=== PATIENT | female | born 1945 | race Caucasian/White ===

== ENCOUNTER → 2018-05-09 | Outpatient (CLI) | payer MEDICARE, BC, OTHER ==
--- NOTE | 2018-05-09 18:09 | CONS ---
Date/Time of Note Date/Time of Note DATE: 05/09/18 TIME: 17:59 Assessment/Plan Assessment/Plan Hospital Course This is a 72-year-old female with a nondisplaced left patella fracture. She has not been properly immobilized over the last week as the knee sleeve given her in the emergency department was not truly knee immobilizer. However the fracture remains nondisplaced and the patient is feeling better. Therefore this is lik blaze a stable fracture. Given this will likely be able to accelerate my standard patella fracture protocol. Plan: Patient was ordered a hinged knee brace. The brace should be locked in extension at all times. She can weight-bear as tolerated with her knee locked in extension. Given the stable fracture can likely start limited range of motion in another 2 weeks. Ice the knee Follow-up 2 weeks with AP and lateral knee x-rays. Consultation Date/Type/Reason Admit Date/Time Date of Consultation: May 09, 2018 Reason for Consultation Left patella fracture Hx of Present Illness This is a 72-year-old female who is otherwise very healthy presents to clinic with a left patella fracture. She fell directly on her knee after missing a step last Sunday on April 25, 2018. She was seen in the emergency department. She was diagnosed with patella fracture. She was placed in a a stiff knee sleeve. She has been keeping her knee straight. And has been weightbearing as tolerated with her knee in extension with a cane. She states her pain is significantly better than it was even a few days ago. Pain today is 2/10. She denies any injury elsewhere at this time. She has been using ice. Patient denies fever, chills, shortness of breath, chest pain, nausea/vomiting, constipation, diarrhea, numbness, and tingling. Past Medical History Vitiligo Osteopenia Past Surgical History Past Surgical Hx: noncontributory Family History Significant Family History: no pertinent family hx Social History Alcohol Use: heavy (1 drink a day) Smoking Status: Former smoker Drug Use: none Exam/Review of Systems Vital Signs Vitals Weight: 105 pounds Height: 5 feet 4 inches Temperature: 98 point Heart Rate: 280 Blood Pressure: 141/62 Respiratory Rate: 14 Exam General: Awake, alert, in no acute distress, pleasant and cooperative Heart: regular rhythm Lungs: breathing comfortably, no tachypnea or dyspnea Musculoskeletal: Left lower extremity: There is a superficial healing abrasion over the anterior knee. There is significant swelling over the knee in the prepatellar bursa as well as intra- articular effusion. There is tenderness palpation over the proximal pole of the patella. Sensation intact light touch along sural, saphenous, deep peroneal, superficial peroneal, plantar nerves. Motor is intact to tibialis Anterior, gastrocnemius, EHL, FHL. Brisk cap refill on toes Imaging Imaging AP and lateral of the left knee was obtained today in clinic. The imaging was personally reviewed by myself There is a nondisplaced patella fracture. There is a vertical as well as a transverse component. This could be true comminuted fracture or possibly a transverse fracture in the setting of a bipartite patella. There is minimal articular step-off. There is a joint effusion. No other fracture appreciated. PATI DUNLAP MD May 09, 2018 18:09
--- NOTE | 2018-05-10 09:57 | RADRPT ---
PROCEDURE: XR knee CLINICAL INDICATION: Left knee pain. TECHNIQUE: 2 weightbearing views of the left knee were obtained. COMPARISON: None. FINDINGS: There is a comminuted nondisplaced patellar fracture. Remaining osseous structures are intact. There are mild tricompartmental osteoarthritic changes of the knee. There is a small knee joint effusion. T here is moderate prepatellar soft tissue swelling. IMPRESSION: 1. Comminuted, nondisplaced patellar fracture. 2. Mild tricompartmental osteoarthritis. 3. Small knee joint effusion. 4. Moderate prepatellar soft tissue swelling. Results were communicated to Doyle (assistant head cashier for Dr. Chavez) by Dr. Alexis at the time of d ictation. RPTAT: DD Physician Moises Date Time Electronically viewed and signed by Physician Moises on 05/10/2018 09:56 /
== END | disposition home or self-care (01) ==
LOC: HKI 15:44
PROVIDERS: ATTEND Orthopaedic Surgery Adult Reconstructive Orthopaedic Surgery
DX: S82.002D Unspecified fracture of left patella, subsequent encounter for closed fracture with routine healing (principal); X58.XXXD Exposure to other specified factors, subsequent encounter
CPT/HCPCS: 73560; G0463

== ENCOUNTER → 2018-05-23 | Outpatient (CLI) | payer MEDICARE, BC, OTHER ==
--- NOTE | 2018-05-23 15:56 | CONS ---
Date/Time of Note Date/Time of Note DATE: 05/23/18 TIME: 15:51 Consult Date/Type/Reason Admit Date/Time Initial Consult Date Reason for Consultation Left patella fracture Subjective 72-year-old female left nondisplaced patella fracture. She is being treated nonoperatively with a hinged knee brace. Over the last 2 weeks she has been locked in full extension at all times. She has been weightbearing as tolerated with the brace locked in full extension. Patient states decrease in swelling. Decrease in pain. Denies numbness and tingling. She has had some significant difficulty with the brace secondary to her small skeletal size in relationship to the brace. She has been wearing a smaller lockable hinged knee brace at night while in bed. Objective Weight: 105 pound Height: 5 foot 4 inches Temperature: 90 point Heart Rate: 96 Blood Pressure: 156/50 Respiratory Rate: 914 Exam General: Awake, alert, in no acute distress, pleasant and cooperative Heart: regular rhythm Lungs: breathing comfortably, no tachypnea or dyspnea Musculoskeletal: Left lower extremity: Skin is intact. There is soft tissue swelling around the patella as well as a joint effusion. No ecchymosis. There is minimal tenderness to palpation along the proximal pole and insertion of the quadricep tendon. Patient is able to perform a straight leg raise. Patient is able to flex the knee to proximal 45 degrees without pain. sensation intact to light touch in a sural, saphenous, deep peroneal, superficial peroneal, medial and lateral plantar nerve distribution. Motor is intact, patient able to dorsiflex and plantarflex ankle and extend and flex great toe. Dorsalis Pedis pulse +2, Brisk capillary refill. Compartments are soft. Results/Medications Results 24 hrs AP and lateral of the left knee were obtained today in clinic. These were personally reviewed. The x-rays again demonstrate a nondisplaced proximal pole patella fracture. No healing is appreciated. There has been no interval displacement or distraction of the fracture. No other acute abnormality. Assessment/Plan Chief Complaint/Hosp Course 72-year-old female 3 weeks status post left nondisplaced patella fracture. She is being treated nonoperatively with a hinged knee brace. At this time the hinged knee brace is going to be unlocked to 30 degrees of flexion. She is allowed to do these range of motion exercises throughout the day. However when she does ambulate the brace should be locked in full extension. If everything proceeds as anticipated in 2 more weeks her brace will be unlocked to 60 degrees in the following 2 weeks would be opened up to 90 degrees. All up 2 weeks with x-rays PATI DUNLAP MD May 23, 2018 15:56
--- NOTE | 2018-05-23 16:53 | RADRPT ---
PROCEDURE: Left knee x-ray CLINICAL INDICATION: Knee pain TECHNIQUE: AP and lateral views of the left knee were obtained. COMPARISON: DR THOMAS 05/09/2018 FINDINGS: There is normal mineralization. There is a comminuted nondisplaced fracture of the patella, unchanged. There are mild degenerative changes. There is no joint effusion. There is no significant soft tissue swelling. RPTAT: AA IMPRESSION: Unchanged comminuted nondisplaced fracture of the patella. Resolved left knee joint effusion. .Valentino Rees MD, MD Date Time Electronically viewed and signed by .Valentino Rees MD, on 05/23/2018 16:53 .S/
== END | disposition home or self-care (01) ==
LOC: HKI 13:45
PROVIDERS: ATTEND Orthopaedic Surgery Adult Reconstructive Orthopaedic Surgery
DX: Z47.89 Encounter for other orthopedic aftercare (principal); S82.002D Unspecified fracture of left patella, subsequent encounter for closed fracture with routine healing; X58.XXXD Exposure to other specified factors, subsequent encounter
CPT/HCPCS: 73560; G0463

== ENCOUNTER → 2018-06-20 | Outpatient (CLI) | payer MEDICARE, BC, OTHER ==
--- NOTE | 2018-06-20 15:20 | CONS ---
Consult Date/Type/Reason Admit Date/Time Initial Consult Date Date/Time of Note DATE: 06/20/18 TIME: 15:17 Subjective 72-year-old female following up 7 weeks status post nondisplaced left patella fracture. She has been treated nonoperatively. At last visit she was allowed to perform range of motion in the brace 0-60 degrees when not bearing weight. When ambulating or bearing weight the brace was to be locked. She has been following instructions. She states the pain continues to be less and less and the swelling has decreased. Denies any other issues. She is looking forward to completing the use of the brace. Objective Vitals Weight: 105 pounds Height: 5 foot 4-1/2 inches Temperature: 98.2 Heart Rate: 75 Blood Pressure: 125/62 Respiratory Rate: 12 Exam General: Awake, alert, in no acute distress, pleasant and cooperative Heart: regular rhythm Lungs: breathing comfortably, no tachypnea or dyspnea MUSCULOSKELETAL: Left lower extremity: Skin intact. There is no swelling or effusion to the knee. There is minimal tenderness to palpation along the proximal pole of the patella. Range of motion 0-90 degrees with no pain. Sensation intact to light touch in a sural, saphenous, deep peroneal, superficial peroneal, medial and lateral plantar nerve distribution. Motor is intact, patient able to dorsiflex and plantarflex ankle and extend and flex great toe. Dorsalis Pedis pulse +2, Brisk capillary refill. Compartments are soft. Calves non-tender to palpation bilaterally. Results/Medications Imaging AP and lateral of the left knee were obtained today and images were personally reviewed. There is a nondisplaced transverse fracture involving the superior pole of the patella. There is no distraction or displacement when compared to previous views. The fracture is healing. Assessment/Plan Hospital Course (Demo Recall) 72-year-old female 7 weeks status post stable nondisplaced left patella fracture. She is doing well. At this time we will allow her to open of the brace 0-90 degrees for range of motion exercises. She is still to use the brace locked in full extension when weightbearing. I would like her to follow-up in 2 weeks and at that time we will unlock the brace completely full range of motion exercises and unlocked to 45 degrees for ambulation and start physical therapy. PATI DUNLAP MD Jun 20, 2018 15:20
--- NOTE | 2018-06-21 05:45 | RADRPT ---
PROCEDURE: Left knee series CLINICAL INDICATION: Pain TECHNIQUE: AP and cross-table lateral views of the right knee COMPARISON: 06/06/2018 left knee FINDINGS: Barely visible fracture line is evident in the healing comminuted nondisplaced patellar fracture. Scl erosis is noted adjacent to the fracture lines in the patella. Mild skin thickening is present withou t definite effusion. Mild joint space narrowing is present of the patellofemoral, medial and lateral joint compartments. IMPRESSION: 1. Healing, comminuted, closed , nondisplaced patellar fracture RPTAT: HDC .Janice Barber MD, Date Time Electronically viewed and signed by .Janice Barber MD, on 06/21/2018 05:45 .C/
== END | disposition home or self-care (01) ==
LOC: HKI 13:23
PROVIDERS: ATTEND Orthopaedic Surgery Adult Reconstructive Orthopaedic Surgery
DX: S82.002D Unspecified fracture of left patella, subsequent encounter for closed fracture with routine healing (principal); X58.XXXD Exposure to other specified factors, subsequent encounter
CPT/HCPCS: 73560; G0463

== ENCOUNTER → 2018-07-04 | Outpatient (CLI) | payer MEDICARE, BC, OTHER ==
--- NOTE | 2018-07-04 16:34 | CONS ---
Consult Date/Type/Reason Admit Date/Time Initial Consult Date Date/Time of Note DATE: 07/04/18 TIME: 16:30 Subjective 73-year-old female returns today 8 weeks status post left nondisplaced patella fracture. She has been treated nonoperatively. She states she has no pain. She is eager to increase her range of motion and wean out of the brace. Objective Exam General: Awake, alert, in no acute distress, pleasant and cooperative Heart: regular rhythm Lungs: breathing comfortably, no tachypnea or dyspnea MUSCULOSKELETAL: Left lower extremity: Skin intact. No effusion. No ecchymosis. Nontender to palpation over the patella and knee. Range of motion 0120 with no pain. Sensation intact to light touch in a sural, saphenous, deep peroneal, superfici al peroneal, medial and lateral plantar nerve distribution. Motor is intact, patient able to dorsiflex and plantarflex ankle and extend and flex great toe. Dorsalis Pedis pulse +2, Brisk capillary refill. Compartments are soft. Calves non-tender to palpation bilaterally. Results/Medications Imaging 2 views of the left knee from an outside facility were reviewed today. These were compared to prior x-rays. There is a healed transverse nondisplaced fracture of the proximal pole of the patella. Assessment/Plan Hospital Course (Demo Recall) 73-year-old female 8 weeks status post left nondisplaced patella fracture. She is doing very well. She has no pain 0-120 degrees of flexion. Clinically and radiographically the patella is healed. At this time she is allowed full range of motion without the brace when not walking. When walking I am requesting that she wears the brace 0-60 degrees to prevent buckling and falling. She will begin physical therapy for range of motion, stretching, strengthening. She is to wean out of the brace as she gains strength and quad control. Follow- up 4 weeks with AP and lateral of the knee. PATI DUNLAP MD Jul 04, 2018 16:34
== END | disposition home or self-care (01) ==
LOC: HKI 15:47
PROVIDERS: ATTEND Orthopaedic Surgery Adult Reconstructive Orthopaedic Surgery
DX: S82.002D Unspecified fracture of left patella, subsequent encounter for closed fracture with routine healing (principal); X58.XXXD Exposure to other specified factors, subsequent encounter
CPT/HCPCS: G0463

== ENCOUNTER → 2018-08-01 | Outpatient (CLI) | payer MEDICARE, BC, OTHER ==
--- NOTE | 2018-08-02 22:20 | RADRPT ---
PROCEDURE: XR Left Knee. CLINICAL INDICATION: Left knee pain. TECHNIQUE: Two views. Frontal and lateral. COMPARISON: 06/20/2018 FINDINGS: There is a nondisplaced healing fracture of the patella, unchanged. There is no new fracture and ther e is no dislocation. The soft tissues are normal. The articular surfaces are intact. There is no lytic or blastic lesion. There is no radiopaque foreign body. IMPRESSION: 1. Nondisplaced healing fracture of the patella, unchanged. 2. Otherwise unremarkable images of the left knee. RPTAT: QQ .Kenneth Ziegler MD, MD Date Time Electronically viewed and signed by .Kenneth Ziegler MD, on 08/02/2018 22:19 .R/
== END | disposition home or self-care (01) ==
LOC: HKI 13:38
PROVIDERS: ATTEND Orthopaedic Surgery Adult Reconstructive Orthopaedic Surgery
DX: M25.512 Pain in left shoulder (principal)
CPT/HCPCS: 73000; G0463

== ENCOUNTER → 2018-09-02 | Outpatient (CLI) | payer MEDICARE, BC, OTHER ==
--- NOTE | 2018-09-02 16:09 | CONS ---
Consult Date/Type/Reason Admit Date/Time Initial Consult Date Date/Time of Note DATE: 09/02/18 TIME: 16:02 Subjective 73-year-old female here for one-month follow-up status post left clavicle fracture. She is been treated nonoperatively. Last visit she was started physical therapy for pendulums and passive range of motion less than 90 degrees and was instructed to be nonweightbearing. However she has progressed quite quickly and is doing full range of motion as well as weightbearing. States pain is significantly improved. Has no pain except with certain movements. Denies numbness and tingling. Pleased with outcome. Objective Vitals Temperature: 90.6 Heart Rate: 135/63 Blood Pressure: 77 Exam General: Awake, alert, in no acute distress, pleasant and cooperative Heart: regular rhythm Lungs: breathing comfortably, no tachypnea or dyspnea MUSCULOSKELETAL: Left upper extremity: Skin intact. There is a visible and palpable bony prominence over the mid clavicle. This is nonmobile. Skin is not threatened. Mild to moderate tenderness to palpation. No ecchymosis. Patient has near full range of active motion of the left shoulder. Sensation intact to light touch in a median, ulnar, radial, and axillary distribution. Motor is intact in a median, ulnar, radial, anterior interosseous, and posterior interosseous nerve distribution. Radial and ulnar artery are +2. Wrist extension and flexion are intact. Compartments are soft. Results/Medications Imaging 2 views of the left clavicle were obtained in clinic today. These were personally reviewed. Demonstrate unchanged midshaft clavicle fracture. There continues to be 100% displacement. However there is minimal to no shortening. Assessment/Plan Hospital Course (Demo Recall) 73-year-old female 1 month status post left clavicle fracture. She is doing very well. She is progressing quicker than I would have liked. I explained to her last visit as well as this visit that this may go on to a fibrous nonunion however in most cases this is not painful and she will maintain her function of her shoulder. However I would like her to decrease her physical activity to allow time for either bony union or fibrous union. Plan: Continue passive range of motion exercises as instructed by physical therapy. Patient should be nonweightbearing left upper extremity. I like to see her back in 4 weeks with x-rays. At that time if everything is good and she is pain-free she can start weightbearing as tolerated. PATI DUNLAP MD Sep 02, 2018 16:09
== END | disposition home or self-care (01) ==
LOC: HKI 14:04
PROVIDERS: ATTEND Orthopaedic Surgery Adult Reconstructive Orthopaedic Surgery
DX: S42.002D Fracture of unspecified part of left clavicle, subsequent encounter for fracture with routine healing (principal); X58.XXXD Exposure to other specified factors, subsequent encounter
CPT/HCPCS: 73000

== ENCOUNTER → 2018-10-02 | Outpatient (CLI) | payer MEDICARE, BC, OTHER ==
--- NOTE | 2018-10-03 20:08 | CONS ---
Consult Date/Type/Reason Admit Date/Time Initial Consult Date Date/Time of Note DATE: 10/03/18 TIME: 20:06 Subjective 73-year-old female follows up today 8 weeks status post left clavicle fracture. She has been treated nonoperatively. She has no pain. She has been using her left upper extremity without restrictions. She does states she has some pain when exerting herself with her left upper extremity on very specific motion such as putting on her seatbelt in the car. Denies numbness and tingling Objective Exam General: Awake, alert, in no acute distress, pleasant and cooperative Heart: regular rhythm Lungs: breathing comfortably, no tachypnea or dyspnea MUSCULOSKELETAL: Left upper extremity: Skin is intact. There is obvious deformity of the midshaft clavicle. The clavicle is nontender to palpation. Full range of motion in all planes Of the left shoulder. 4+/5 strength for all muscle groups of the shoulder. Sensation intact to light touch in a median, ulnar, radial, and axillary distribution. Motor is intact in a median, ulnar, radial, anterior interosseous, and posterior interosseous nerve distribution. Radial and ulnar artery are +2. Wrist extension and flexion are intact. Compartments are soft. Results/Medications Imaging 2 views of the left clavicle were personally reviewed today. Demonstrate midshaft clavicle fracture. There remains 100% displacement. There is some callus formation. The callus is not bridging at this time. Assessment/Plan Hospital Course (Demo Recall) 73-year-old female 8 weeks status post left clavicle fracture. This is being treated nonoperatively. She is minimally symptomatic. There are some subtle signs of healing on x-ray. However given the displacement this may go on to fibrous union. Given that the patient has almost no symptoms at all we will continue conservative treatment. At this time the patient can perform range of motion as tolerated as well as weight-bear as tolerated. Follow-up PATI LEDEZMA MD October 03, 2018 20:08
== END | disposition home or self-care (01) ==
LOC: HKI 13:35
PROVIDERS: ATTEND Orthopaedic Surgery Adult Reconstructive Orthopaedic Surgery
DX: S42.022D Displaced fracture of shaft of left clavicle, subsequent encounter for fracture with routine healing (principal); X58.XXXD Exposure to other specified factors, subsequent encounter
CPT/HCPCS: 73000; G0463